=== PATIENT | female | born 1985 | race Caucasian/White ===

== ENCOUNTER 2018-12-24 05:30 | Day surgery (SDC) | payer OTHER ==
[2018-12-21 09:50] LABS: HEMATOCRIT 40.2 % (36.0-47.0); HEMOGLOBIN 13.6 g/dL (12.0-15.5); MEAN CORPUSCULAR HEMOGLOBIN 30.5 pg (27.0-33.4); MEAN CORPUSCULAR HGB CONC 33.7 g/dL (32.0-36.0); MEAN CORPUSCULAR VOLUME 90 fl (80-97); PLATELET COUNT 316 10^3/uL (150-450); RED BLOOD COUNT 4.44 10^6/uL (3.72-5.28); RED CELL DISTRIBUTION WIDTH 12.5 % (11.5-14.0); WHITE BLOOD COUNT 11.4 10^3/uL (4.0-10.5)
[2018-12-21 10:18] LABS: ALANINE AMINOTRANSFERASE 21 U/L (9-52); ALBUMIN 4.2 g/dL (3.5-5.0); ALKALINE PHOSPHATASE 70 U/L (38-126); ANION GAP 12 (5-19); ASPARTATE AMINO TRANSFERASE 18 U/L (14-36); BILIRUBIN,DIRECT 0.3 mg/dL (0.0-0.4); BILIRUBIN,TOTAL 0.3 mg/dL (0.2-1.3); BLOOD UREA NITROGEN 14 mg/dL (7-20); CALCIUM 9.4 mg/dL (8.4-10.2); CARBON DIOXIDE 23 mmol/L (22-30); CHLORIDE 105 mmol/L (98-107); GLUCOSE 69 mg/dL (75-110); POTASSIUM 4.5 mmol/L (3.6-5.0); SODIUM 139.8 mmol/L (137-145); TOTAL PROTEIN 6.9 g/dL (6.3-8.2)
[~2018-12-24 05:30] MED LIST: CEFAZOLIN 2 GM/D5W RTU 2 GM/50 ML RTUPB IV ONE; CEFAZOLIN 2 GM/D5W RTU 2 GM/50 ML RTUPB IV PRN; LACTATED RINGERS 1000 ML IV PRN; LIDOCAINE 0.5% INJ-PF (5 MG/ML) 50 ML SDV SUBCUT PRN; NORMAL SALINE 1000 ML 1,000 ML IV PRN; RINGERS SOLUTION,LACTATED 1,000 ML IV PRN; SCOPOLAMINE HYDROBROMIDE 1.5 MG PATCH.TD72 ONE; SCOPOLAMINE HYDROBROMIDE 1.5 MG PATCH.TD72 TD PRN
[2018-12-24] MEDS ORDERED: FENTANYL CITRATE INJ/PF 250 MCG/5 ML AMPULE ONE (06:26)
[2018-12-24] MEDS ORDERED: SUGAMMADEX SODIUM 200 MG/2 ML SDV IV ONE (06:27)
[2018-12-24] MEDS ORDERED: PROPOFOL INJ 200 MG/20 ML VIAL IV ONE (06:27)
[2018-12-24] MEDS ORDERED: ONDANSETRON HCL INJ/PF 4 MG/2 ML SDV ONE (06:27)
[2018-12-24] MEDS ORDERED: ACETAMINOPHEN 1,000 MG/100 ML RTUPB IV ONE (06:27)
[2018-12-24] MEDS ORDERED: MIDAZOLAM 2 MG/2 ML INJ ONE (06:27)
[2018-12-24] MEDS ORDERED: DEXAMETHASONE SOD PHOSPHATE INJ 4 MG/1 ML VIAL ONE (06:27)
[2018-12-24] MEDS ORDERED: LIDOCAINE 0.5% INJ-PF (5 MG/ML) 50 ML SDV ONE (06:37)
[2018-12-24] MEDS ORDERED: METHYLENE BLUE 50 MG/10 ML AMPULE ONE (07:18)
[2018-12-24] MEDS ORDERED: BUPIVACAINE HCL 0.25 % INJ/PF (2.5 MG/1 ML) 30 ML VIAL ONE (07:18)
[2018-12-24] MEDS ORDERED: MEPERIDINE HCL/PF INJ 25 MG/1 ML DISP.SYRIN IV PRN (08:15)
[2018-12-24] MEDS ORDERED: PROMETHAZINE HCL INJ 25 MG/1 ML VIAL IV PRN ×3 (08:15→10:53)
[2018-12-24] MEDS ORDERED: ONDANSETRON HCL INJ/PF 4 MG/2 ML SDV IV PRN ×2 (08:15→10:52)
[2018-12-24] MEDS ORDERED: DIPHENHYDRAMINE HCL 50 MG/ML VIAL IV PRN (08:15)
[2018-12-24] MEDS ORDERED: FENTANYL CITRATE INJ/PF 100 MCG/2 ML AMPUL IV PRN ×3 (08:15)
[2018-12-24] MEDS ORDERED: KETOROLAC TROMETHAMINE INJ/PF 30 MG/1 ML SDV ONE (09:35)
[2018-12-24] MEDS: FENTANYL CITRATE INJ/PF 100 MCG/2 ML AMPUL ONE ×2 (09:35→09:45)
[2018-12-24] MEDS ORDERED: PROMETHAZINE HCL INJ 25 MG/1 ML VIAL ONE (09:53)
[2018-12-24] MEDS ORDERED: OXYCODONE-ACETAMINOPHEN 5-325 MG TABLET PO PRN (10:48)
[2018-12-24] MEDS ORDERED: HYDROMORPHONE HCL INJ/PF 2 MG/ML AMPULE IV PRN (10:51)
[2018-12-24] MEDS ORDERED: OXYCODONE HCL IR 5 MG TABLET PO PRN (10:57)
[2018-12-24] MEDS ORDERED: NORMAL SALINE 1000 ML 1,000 ML IV ONE (11:00)
--- NOTE | 2018-12-24 11:59 | OPERATIVE REPORT E ---
Operative Report NAME: CAMILLE ROSALES : 1985 AGE: 33Y DATE OF SURGERY: 12/24/2018 ROOM: PREOPERATIVE DIAGNOSES: 1. Severe endometriosis. 2. Chronic pelvic pain. 3. Abnormal uterine bleeding unresponsive to medical therapy. POSTOPERATIVE DIAGNOSES: 1. Severe endometriosis. 2. Chronic pelvic pain. 3. Abnormal uterine bleeding unresponsive to medical therapy. OPERATION: 1. Robotic total laparoscopic hysterectomy. 2. Bilateral salpingectomy. 3. Cystoscopy. 4. Fulguration of endometriosis with implants. 5. Right pelvic sidewall fatty-contained tissue removal. SURGEON: Jyothi Bolanos M.D. POWERTRAIN CONTROL SYSTEMS ENGINEER: Kristin Hsu M.D. ANESTHESIA: General. INTRAVENOUS FLUIDS: 1800 mL. URINE OUTPUT: 200 mL clear urine at the end of procedure. COMPLICATIONS: None. ESTIMATED BLOOD LOSS: 100 mL. SPECIMENS: Uterus, cervix, fallopian tubes bilaterally, and pelvic sidewall lesions. INDICATIONS: The patient is a 33-year-old 2, para 2-0-0-2, who presented to my clinic approximately 6 months ago with chief complaint of chronic pelvic pain with a history of endometriosis not proven via laparoscopy previously and abnormal uterine bleeding requiring multiple ER visits for her pelvic pain. The patient was taken previously for a diagnostic laparoscopy that depicted multiple endometrial implants throughout her pelvis, and fulguration of endometriosis was done at that time. The patient re-presented to the clinic again with persistent pelvic pain unresponsive to medical therapy coupled with her abnormal uterine bleeding pattern and obliteration of her anterior and posterior cul-de-sacs. The patient desired surgical definitive treatment, including a hysterectomy. Risks were discussed with the patient and included, but not limited to, bleeding, infection, injury to bowel or bladder, possible exploratory laparotomy, transfusion of packed RBCs, and any other indicated procedures. The patient was consented for the robotic total laparoscopic hysterectomy with bilateral salpingectomy and a cystoscopy. PROCEDURE: The patient was taken to the operating room where general anesthesia was found to be adequate. She was prepped and draped in normal sterile fashion. Vaginally a heavy weighted speculum was inserted. Cervix was visualized. Anterior lip of the cervix was grasped with a tenaculum. Two anchoring stitches at 3 and 9 o'clock were inserted, and the [place] manipulator was introduced and anchored within those stitches. At this point the tenaculum was removed. Tom catheter was inserted. The manipulator was properly placed and anchored within the stitches. At this point attention was turned from above where a 10 mm horizontal supraumbilical incision was performed. Veress needle was introduced and insufflation of the abdomen performed successfully. Trocar inserted successfully. Camera inserted and visualized intra-abdominal placement confirmation. Survey of the abdomen revealed obliterated anterior and posterior cul-de-sac, right and left omental adhesions to the pelvic sidewalls, and two right pelvic sidewall and a posterior cul-de-sac of fat-contained pouches that were easily squeezed out from their pouches and removed through the trocar easily. At this point the ureters were visualized and were both peristalsing and well outside the surgical field at all times. In order to visualize the ureter on the left side, omental adhesions were taken down very simply with traction. At this point the procedure was initiated. The fimbriated end of the right fallopian tube was grasped, cauterized, and transected along the mesosalpinx. The utero-ovarian ligament was cauterized and transected. The round ligament was cauterized and transected all the way down to the uterine vessels. The anterior leaf of the broad ligament was spread out in order to visualize the lower uterine segment and push the bladder away from the surgical field. The contralateral side was performed in a similar fashion, the fimbriated end was cauterized and transected all the way to the cornual end, utero-ovarian was cauterized and transected, and the round ligament cauterized and transected all the way down to the uterus using a vessel seal. At this point, once on the left, the anterior broad leaf of the ligament was cauterized and transected, and then the bladder was pushed down away from the surgical field. At this point an anterior colpotomy was performed. The green top of the VCare was visualized. The posterior colpotomy was performed. The green portion of the VCare was visualized and connected from anterior to posterior. The colpotomy was performed successfully using the scissors bipolar, and at this point the uterus, fallopian tubes, and cervix was completely free after complete colpotomy in a circumferential manner and was removed vaginally. At this point the vaginal cuff was closed with a V-Loc suture in a running fashion. There were small oozing portions from the vaginal cuff that were cauterized with bipolar. After closure of the vaginal cuff, I had asked Anesthesia to give methylene blue in preparation for the cystoscopy portion. At this point also visualization of both the ureters were confirmed and they were both peristalsing and away from the surgical field at all times. Visualizing the right pelvic sidewall lesion and fat-containing pouches, those were easily squeezed out of the pouch and removed through the laparoscopic trocar, the sales office assistant port, and were sent off for specimen in a separate container. Hemostasis was obtained. FloSeal was injected along the vaginal cuff for prophylactic measures. The patient tolerated the procedure well from the robotic standpoint. The robot was undocked. The laparoscopic trocars were removed. The cystoscopy portion was performed from below. The cystoscope was inserted. Visualization of the bladder revealed no trauma or foreign bodies. Excellent strong ureteral efflux flow from both right and left ureteral orifices were visualized with strong methylene blue coming through. No trauma to the bladder dome or trigone. Cystoscopy portion was completed and normal. Cystoscope was removed. Attention was turned back from above to close the 4 small trocar incisions, one that was supraumbilical, and the two right and left lower quadrant and the right upper quadrant incisions were closed. The supraumbilical incision was reapproximated with a UR6 for the fascia and closed in a subcuticular fashion with a 4-0 Monocryl. The right upper quadrant, right lower quadrant, and left lower quadrant incisions were closed with 4-0 Monocryl in a continuous fashion and then Dermabond was applied on top of it. Prior to application of Dermabond, Marcaine with epinephrine was injected for postoperative pain. The patient's vaginal mucosa was inspected below to make sure there were no lacerations. Hemostasis was obtained. There was no bleeding coming from the vaginal cuff. The patient tolerated the procedure well. All lap, sponge, and needle counts were correct x2. The patient was taken to the recovery room in a stable condition. DICTATING PHYSICIAN: Jyothi Bolanos MD [id number] PHY#: [id number] ID: [id number] JOB#: [id number] ACCT: [id number] cc:Jyothi Bolanos >
[2018-12-24] MEDS ORDERED: ROCURONIUM BROMIDE INJ 50 MG/5 ML VIAL IV ONE (14:57)
[2018-12-24] MEDS ORDERED: GLYCOPYRROLATE 1 MG/5 ML VIAL ONE (14:57)
[2018-12-24] MEDS ORDERED: SUCCINYLCHOLINE CHLORIDE INJ 200 MG/10 ML VIAL ONE (14:57)
[2018-12-24 15:00] VITALS: BP 132/72
== END 2018-12-24 15:29 | disposition home or self-care (01) ==
LOC: OROUT 05:30 → 2S 10:35 → OROUT 15:29
PROVIDERS: ATTEND Obstetrics & Gynecology
DX: N80.3 Endometriosis of pelvic peritoneum (principal); N93.9 Abnormal uterine and vaginal bleeding, unspecified; N73.6 Female pelvic peritoneal adhesions (postinfective); N83.8 Other noninflammatory disorders of ovary, fallopian tube and broad ligament; K66.8 Other specified disorders of peritoneum
CPT/HCPCS: 58571; 58662; S2900; 36415; 80053; 81025; 840; 85027; 86850; 86900; 86901; 88305; 88307; J0131; J0330; J0690; J1100; J1885; J2250; J2405; J2550; J2704; J3010; J3490; Q9968